=== PATIENT | female | born 1980 | race Two or more races ===

== ENCOUNTER 2022-07-02 13:40 | Day surgery (SDC) | payer MEDICAID ==
[2022-07-01 11:42] LABS: Basophils # (auto) 0 10 ^3/uL (0-0.2); Basophils % (auto) 0.5 % (0.0-2.0); Eosinophils # (auto) 0.4 10 ^3/uL (0-0.8); Eosinophils % (auto) 6.3 % (0.0-7.0); Hematocrit 37.1 % (36.0-46.0); Lymphocytes # (auto) 2.3 10 ^3/uL (0.4-5.4); Lymphocytes % (auto) 37.1 % (10.0-50.0); Mean Corpuscular Hemoglobin 28.6 pg (28.0-32.0); Mean Corpuscular Hgb Conc. 32.3 g/dL (32.0-36.0); Mean Corpuscular Volume 88.5 fL (80.0-100.0); Monocytes # (auto) 0.5 10 ^3/uL (0-1.3); Monocytes % (auto) 7.5 % (0.0-12.0); Neutrophils % (auto) 48.6 % (37.0-80.0); Nucleated Red Blood Cells % 0.1 %; White Blood Cell 6.2 10^3/uL (4.4-10.8)
[2022-07-01 11:59] LABS: INR 0.91 (0.9-1.15); Partial Thromboplastin Time 28.4 sec (24.6-33.4)
[2022-07-01 12:36] LABS: Albumin 3.9 g/dL (3.4-5.0); Calcium 8.5 mg/dL (8.5-10.1); Potassium 4.2 mmol/L (3.5-5.1)
[2022-07-01 13:20] LABS: Bilirubin, Total 0.2 mg/dL (0.2-1.0); Total Protein 6.8 g/dL (6.4-8.2)
[~2022-07-02] VITALS: Ht 152.4 cm; Wt 57.6 kg
[2022-07-02] MEDS ORDERED: MIDAZOLAM HCL 5 MG/ML-1ML VIAL ONE (14:21)
[2022-07-02] MEDS ORDERED: LIDOCAINE VISCOUS 2% 15ML UD ONE (14:22)
[2022-07-02] MEDS ORDERED: diphenhdrAMINE HCL 50 MG/1 ML VL ONE (14:22)
[2022-07-02] MEDS ORDERED: fentaNYL CITRATE 100 MCG/2 ML VL ONE (14:22)
[2022-07-02] MEDS ORDERED: LIDOCAINE VISCOUS 2% 15ML UD MT ONE (15:51)
[2022-07-02] MEDS ORDERED: diphenhdrAMINE HCL 50 MG/1 ML VL IV ONE ×2 (15:53→15:55)
[2022-07-02] MEDS ORDERED: MIDAZOLAM HCL 5 MG/ML-1ML VIAL IV ONE ×3 (15:53→15:58)
[2022-07-02] MEDS ORDERED: fentaNYL CITRATE 100 MCG/2 ML VL IV ONE ×2 (15:53→15:56)
[2022-07-02 16:25] VITALS: BP 122/80
== END 2022-07-02 16:40 | disposition home or self-care (01) ==
LOC: GI 13:40
PROVIDERS: ATTEND Internal Medicine Gastroenterology
DX: K21.9 Gastro-esophageal reflux disease without esophagitis (principal); K29.50 Unspecified chronic gastritis without bleeding; K44.9 Diaphragmatic hernia without obstruction or gangrene; K25.9 Gastric ulcer, unspecified as acute or chronic, without hemorrhage or perforation; J45.909 Unspecified asthma, uncomplicated; Z20.822 Contact with and (suspected) exposure to COVID-19
CPT/HCPCS: 36415; 43239; 80053; 81025; 84702; 85025; 85610; 85730; 88305; 88342; J1200; J2250; J3010; J7030; U0003

== ENCOUNTER 2022-10-29 12:36 | Day surgery (SDC) | payer MEDICAID ==
[2022-10-25 14:40] LABS: Basophils # (auto) 0 10 ^3/uL (0-0.2); Basophils % (auto) 0.6 % (0.0-2.0); Eosinophils # (auto) 0.4 10 ^3/uL (0-0.8); Eosinophils % (auto) 5.8 % (0.0-7.0); Hematocrit 36.8 % (36.0-46.0); Hemoglobin 12.2 g/dL (12.2-16.2); Lymphocytes # (auto) 2.3 10 ^3/uL (0.4-5.4); Lymphocytes % (auto) 35.9 % (10.0-50.0); Mean Corpuscular Hemoglobin 29.6 pg (28.0-32.0); Mean Corpuscular Hgb Conc. 33.1 g/dL (32.0-36.0); Mean Corpuscular Volume 89.6 fL (80.0-100.0); Monocytes # (auto) 0.5 10 ^3/uL (0-1.3); Monocytes % (auto) 7.8 % (0.0-12.0); Neutrophils # (auto) 3.1 10 ^3/uL (1.6-8.6); Neutrophils % (auto) 49.9 % (37.0-80.0); Nucleated Red Blood Cells % 0.2 %; Red Blood Cells 4.11 10^6/uL (4.0-5.20); Red Cell Distribution Width 13.7 % (11.8-14.3); White Blood Cell 6.3 10^3/uL (4.4-10.8)
[2022-10-25 15:07] LABS: INR 1.01 (0.9-1.15); Partial Thromboplastin Time 28.8 sec (24.6-33.4)
[2022-10-25 15:40] LABS: Albumin 3.6 g/dL (3.4-5.0); Calcium 9.2 mg/dL (8.5-10.1)
[2022-10-25 15:42] LABS: BUN/Creatinine Ratio 26.9
[2022-10-25 15:45] LABS: Bilirubin, Total 0.5 mg/dL (0.2-1.0)
[2022-10-25 16:06] LABS: Potassium 4.1 mmol/L (3.5-5.1)
[~2022-10-29] VITALS: Ht 154.9 cm; Wt 59.0 kg
[~2022-10-29 12:36] MED LIST: FLUMAZENIL 0.1 MG/ML INJ 10ML MDV IV ONE; MIDAZOLAM HCL 2MG/2ML 2ml VIAL (1mg/ml) ONE; NALOXONE HCL 0.4 MG/ML VIAL ONE; diphenhdrAMINE HCL 50 MG/1 ML VL ONE; fentaNYL CITRATE 100 MCG/2 ML VL ONE
[2022-10-29] MEDS ORDERED: fentaNYL CITRATE 100 MCG/2 ML VL ONE ×2 (12:52→13:55)
[2022-10-29] MEDS ORDERED: MIDAZOLAM HCL 2MG/2ML 2ml VIAL (1mg/ml) ONE ×2 (12:52→13:54)
[2022-10-29] MEDS ORDERED: diphenhdrAMINE HCL 50 MG/1 ML VL ONE (12:52)
== END 2022-10-29 15:06 | disposition home or self-care (01) ==
LOC: GI 12:36
PROVIDERS: ATTEND Internal Medicine Gastroenterology
DX: R10.9 Unspecified abdominal pain (principal); K64.0 First degree hemorrhoids; Q43.8 Other specified congenital malformations of intestine; K62.89 Other specified diseases of anus and rectum; K52.89 Other specified noninfective gastroenteritis and colitis; K64.4 Residual hemorrhoidal skin tags; Z20.822 Contact with and (suspected) exposure to COVID-19
CPT/HCPCS: 36415; 45380; 80053; 85025; 85610; 85730; 88305; J1200; J2250; J3010; U0003